=== PATIENT | male | born 2000 | race Caucasian/White ===

== ENCOUNTER 2018-02-03 15:23 | Emergency (ER) | payer OTHER ==
[2018-02-03 15:40] VITALS: BP 113/60
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
== END 2018-02-03 16:36 | disposition home or self-care (01) ==
LOC: ER 15:23
DX: H16.133 Photokeratitis, bilateral (principal); R51 Headache; W89.8XXA Exposure to other man-made visible and ultraviolet light, initial encounter; Y99.0 Civilian activity done for income or pay; F17.200 Nicotine dependence, unspecified, uncomplicated
CPT/HCPCS: 99283